=== PATIENT | male | born 1945 | race Caucasian/White ===

== ENCOUNTER 2023-05-22 08:01 | Day surgery (SDC) | payer OTHER ==
[~2023-05-22] VITALS: Ht 172.7 cm; Wt 85.1 kg
[2023-05-22] VITALS (10 sets, daily range): BP systolic 101–154; BP diastolic 54–98
[~2023-05-22 08:01] MED LIST: ASPI81CH PO; B-12500 MC2 PO; ELEMENTAL ZINC30 MG PO; Lisinopril-Hct1 EAC4 PO; OMEP20ER PO; POTCIT10 PO; Vitamin D1000 UNI1 PO
--- NOTE | 2023-05-22 12:19 | NUR ---
DISCHARGE NOTE PT A&OX4, BREATHING RA, CALM, TALKATIVE, NO COMPLAINTS. PT TOLERATING PO FLUIDS AND FOOD. PT DRESSED INDEPENDENTLY C RN AT BEDSIDE. Discharge instructions reviewed with patient. Patient verbalizes understanding. Copy given to patient to take home. Dressing to procedure site clean, dry, intact with no visible drainage, swelling, erythema or bruising noted. Discharged via wheelchair to private car for ride home.
== END 2023-05-22 12:26 | disposition home or self-care (01) ==
LOC: ORSCMMR 08:01 → ORD 09:30 → ORSCMMR 09:30
PROVIDERS: Surgery
PROC: 0YU54JZ Supplement Right Inguinal Region with Synthetic Substitute, Percutaneous Endoscopic Approach (ICD-10-PCS; principal; 2023-05-22 09:30)
PROC: 8E0W4CZ Robotic Assisted Procedure of Trunk Region, Percutaneous Endoscopic Approach (ICD-10-PCS; principal; 2023-05-22 09:30)
DX: K40.90 Unilateral inguinal hernia, without obstruction or gangrene, not specified as recurrent (principal); I10 Essential (primary) hypertension; Z87.891 Personal history of nicotine dependence; K21.9 Gastro-esophageal reflux disease without esophagitis; Z79.899 Other long term (current) drug therapy; Z79.82 Long term (current) use of aspirin
CPT/HCPCS: A9270; C1781; J0690; J1100; J1885; J2250; J2405; J2704; J3010; J7120

== ENCOUNTER 2024-03-17 05:07 | Emergency (ER) | payer OTHER ==
[~2024-03-17] VITALS: Ht 177.8 cm; Wt 73.5 kg
[2024-03-17 05:31] LABS: BASOPHILS ABSOLUTE AUTO 0.06 K/mm3 (0.00-0.23); BASOPHILS PERCENT AUTO 0 % (0-2); EOSINOPHILS ABSOLUTE AUTO 0.19 K/mm3 (0.00-0.68); EOSINOPHILS PERCENT AUTO 1 % (0-6); Hematocrit 41.5 % (37.0-53.0); Hemoglobin 14.2 g/dL (13.5-17.5); IMMATURE GRAN ABSOLUTE AUTO 0.17 K/mm3 (0.00-0.10); IMMATURE GRAN PERCENT AUTO 1 % (0-1); LYMPHOCYTES ABSOLUTE AUTO 1.86 K/mm3 (0.84-5.20); LYMPHOCYTES PERCENT AUTO 10 % (21-46); MONOCYTES ABSOLUTE AUTO 2.05 K/mm3 (0.16-1.47); MONOCYTES PERCENT AUTO 11 % (4-13); Mean Corpuscular HGB 33.4 pg (26.0-34.0); Mean Corpuscular HGB Conc 34.2 g/dL (31.5-36.5); Mean Corpuscular Volume 98 fL (80-100); Mean Platelet Volume 9.7 fL (9.1-12.4); NEUTROPHILS ABSOLUTE AUTO 14.71 K/mm3 (1.96-9.15); NEUTROPHILS PERCENT AUTO 77 % (41-73); Platelet Count 283 K/mm3 (150-400); RDW Coefficient Variation 13.6 % (11.7-14.2); Red Blood Cell Count 4.25 M/mm3 (4.30-5.90); White Blood Cell Count 19.04 K/mm3 (4.00-11.30)
[2024-03-17 05:59] LABS: Albumin/Globulin Ratio 0.8 (0.8-1.8); Bilirubin, Total 5.5 mg/dL (0.1-1.0); Bun/Creatinine Ratio 12.8 (12.0-20.0); Calcium, Blood 8.9 mg/dL (8.5-10.1); Creatinine, Blood 1.17 mg/dL (0.60-1.20); Potassium, Blood 4.2 mmol/L (3.5-5.5)
[2024-03-17] MEDS ORDERED: Piperacillin/Tazobactam Sod 4.5 GM in NS 100 ML IV ONE (07:50)
[2024-03-17] MEDS ORDERED: NS 100 ML IV ONE (08:00)
[2024-03-17] MEDS ORDERED: Piperacillin/Tazobactam Sod 4.5 GM ONE (08:00)
[2024-03-17 10:17] VITALS: BP 145/91
[2024-03-17 10:21] LABS: Source, Urine Clean Catch
[2024-03-17 10:28] LABS: Appearance, Urine Clear (Clear); Blood, Urine Neg (Neg); Color, Urine Yellow (P-Yellow); Glucose Qualitative, Urine Neg (Neg); Ketones, Urine Neg (Neg); Leukocyte Esterase, Urine 1+ (Neg); Nitrite, Urine Neg (Neg); Protein, Urine 1+ (Neg); Urobilinogen, Urine 2+ (Normal)
[2024-03-17 10:36] LABS: Bilirubin, Urine 2+ (Neg)
[2024-03-17 10:37] LABS: Bacteria Rare /hpf; Red Blood Cells, Urine 0-2 /hpf (0-2); Squamous Epithelial Cells Few /hpf (Few)
== END 2024-03-17 10:55 | disposition short-term general hospital (02) ==
LOC: ER 05:07
PROVIDERS: Emergency Medicine
DX: K80.50 Calculus of bile duct without cholangitis or cholecystitis without obstruction (principal); I10 Essential (primary) hypertension; Z87.891 Personal history of nicotine dependence; Z91.030 Bee allergy status; Z79.82 Long term (current) use of aspirin; Z79.899 Other long term (current) drug therapy
CPT/HCPCS: 71046; 74177; 80053; 81001; 83690; 84484; 85025; 87086; 93005; 93010; 96361; 96374-59; 99285-25; J2543; Q9967

== ENCOUNTER 2025-01-24 20:52 | Inpatient (IN) | payer OTHER ==
[~2025-01-24] VITALS: Ht 177.8 cm; Wt 84.0 kg
[~2025-01-24 20:52] MED LIST changes: +EFUDEX40 GM TOP; +SILD50TA PO
[2025-01-24] MEDS ORDERED: Ondansetron HCl 2 MG / ML 2ML Vial IV ONE ×2 (21:10→23:05)
[2025-01-24 21:11] LABS: BASOPHILS ABSOLUTE AUTO 0.04 K/mm3 (0.00-0.23); BASOPHILS PERCENT AUTO 0 % (0-2); EOSINOPHILS ABSOLUTE AUTO 0.08 K/mm3 (0.00-0.68); EOSINOPHILS PERCENT AUTO 0 % (0-6); Hematocrit 39.9 % (37.0-53.0); Hemoglobin 13.7 g/dL (13.5-17.5); IMMATURE GRAN ABSOLUTE AUTO 0.10 K/mm3 (0.00-0.10); IMMATURE GRAN PERCENT AUTO 1 % (0-1); LYMPHOCYTES ABSOLUTE AUTO 2.59 K/mm3 (0.84-5.20); LYMPHOCYTES PERCENT AUTO 13 % (21-46); MONOCYTES ABSOLUTE AUTO 2.42 K/mm3 (0.16-1.47); MONOCYTES PERCENT AUTO 12 % (4-13); Mean Corpuscular HGB Conc 34.3 g/dL (31.5-36.5); Mean Corpuscular Volume 97 fL (80-100); NEUTROPHILS ABSOLUTE AUTO 15.34 K/mm3 (1.96-9.15); NEUTROPHILS PERCENT AUTO 75 % (41-73); NRBC ABSOLUTE 0.00 K/mm3 (0.00-0.02); NRBC Auto 0.0 /100 WBC (0.0-0.2); Platelet Count 235 K/mm3 (150-400); RDW Coefficient Variation 13.2 % (11.7-14.2); RDW Standard Deviation 48.0 fL (35.1-46.3)
[2025-01-24 21:35] LABS: Alanine Aminotransfer (ALT/SGP 122.0 U/L (12-78); Albumin, Blood 3.2 g/dL (3.4-5.0); Albumin/Globulin Ratio 1.0 (0.8-1.8); Anion Gap 9.0 mmol/L (3-11); Aspartate Aminotrans (AST/SGOT 190.0 U/L (12-37); Bilirubin, Total 1.6 mg/dL (0.1-1.0); Blood Urea Nitrogen 22.0 mg/dL (8-24); CO2, Blood 28.0 mmol/L (21-32); Calcium, Blood 8.5 mg/dL (8.5-10.1); Chloride, Blood 105.0 mmol/L (98-108); Creatinine, Blood 1.19 mg/dL (0.60-1.20); Globulin, Blood 3.2 g/dL (2.2-4.0); Glucose, Blood 164.0 mg/dL (70-99); Potassium, Blood 3.6 mmol/L (3.5-5.5); Sodium, Blood 138.0 mmol/L (136-145); Total Protein, Blood 6.4 g/dL (6.4-8.2)
[2025-01-24] MEDS ORDERED: Ketorolac Tromethamine 15mg Vial IV ONE (23:35)
[2025-01-25] VITALS (87 sets, daily range): BP systolic 103–154; BP diastolic 50–111
[2025-01-25] MEDS ORDERED: Morphine Sulfate 4 MG/1 ML Injection IV ONE (00:10)
[2025-01-25 00:37] LABS: Thyroid Stimulating Hormone 2.63 uIU/mL (0.360-4.800)
[2025-01-25] MEDS ORDERED: Morphine Sulfate 4 MG/1 ML Injection IV PRN (01:30)
[2025-01-25] MEDS ORDERED: Prochlorperazine Edisylate 10 mg Vial IV PRN (02:00)
[2025-01-25] MEDS ORDERED: Prochlorperazine Edisylate 10 mg Vial IV ONE (02:00)
--- NOTE | 2025-01-25 02:00 | NUR ---
TRANSFER FROM ER RECEIVED PT VIA BED FROM ER AT 0100, MONITORS PLACED, ORIENTED PT TO SURROUNDINGS. C/O EPIGASTRIC PAIN AND NAUSEA THAT'S CONTINUED FROM ED. DR BAEZ NOTIFIED OF PT STATUS AND CONTINUED C/O PAIN AFTER MORPHINE IN ED. ORDERS RECEIVED FOR COMPAZINE AND MORPHINE WHICH WERE GIVEN WITH A POSITIVE RESULT. PT SLEEPING COMFORTABLY. VSS WITH BRADYCARDIA HIGH 50'S TO LOW 60'S.
[2025-01-25 03:44] LABS: BASOPHILS ABSOLUTE AUTO 0.02 K/mm3 (0.00-0.23); BASOPHILS PERCENT AUTO 0 % (0-2); EOSINOPHILS ABSOLUTE AUTO 0.00 K/mm3 (0.00-0.68); EOSINOPHILS PERCENT AUTO 0 % (0-6); Hematocrit 43.0 % (37.0-53.0); Hemoglobin 14.2 g/dL (13.5-17.5); IMMATURE GRAN ABSOLUTE AUTO 0.10 K/mm3 (0.00-0.10); IMMATURE GRAN PERCENT AUTO 1 % (0-1); LYMPHOCYTES ABSOLUTE AUTO 0.63 K/mm3 (0.84-5.20); LYMPHOCYTES PERCENT AUTO 4 % (21-46); MONOCYTES ABSOLUTE AUTO 1.36 K/mm3 (0.16-1.47); MONOCYTES PERCENT AUTO 8 % (4-13); Mean Corpuscular HGB Conc 33.0 g/dL (31.5-36.5); Mean Corpuscular Volume 98 fL (80-100); NEUTROPHILS ABSOLUTE AUTO 14.34 K/mm3 (1.96-9.15); NEUTROPHILS PERCENT AUTO 87 % (41-73); NRBC ABSOLUTE 0.00 K/mm3 (0.00-0.02); NRBC Auto 0.0 /100 WBC (0.0-0.2); Platelet Count 234 K/mm3 (150-400); RDW Coefficient Variation 13.3 % (11.7-14.2); RDW Standard Deviation 48.3 fL (35.1-46.3)
[2025-01-25 04:10] LABS: Alanine Aminotransfer (ALT/SGP 194.0 U/L (12-78); Albumin, Blood 3.2 g/dL (3.4-5.0); Albumin/Globulin Ratio 0.9 (0.8-1.8); Anion Gap 9.0 mmol/L (3-11); Aspartate Aminotrans (AST/SGOT 171.0 U/L (12-37); Bilirubin, Direct 0.6 mg/dL (0.0-0.3); Bilirubin, Indirect 1.2 mg/dL (0.1-0.7); Bilirubin, Total 1.8 mg/dL (0.1-1.0); Blood Urea Nitrogen 26.0 mg/dL (8-24); CO2, Blood 27.0 mmol/L (21-32); Calcium, Blood 8.5 mg/dL (8.5-10.1); Chloride, Blood 104.0 mmol/L (98-108); Creatinine, Blood 1.19 mg/dL (0.60-1.20); Globulin, Blood 3.7 g/dL (2.2-4.0); Glucose, Blood 186.0 mg/dL (70-99); Magnesium, Blood 2.0 mg/dL (1.6-2.4); Potassium, Blood 4.0 mmol/L (3.5-5.5); Sodium, Blood 136.0 mmol/L (136-145); Total Protein, Blood 6.9 g/dL (6.4-8.2)
--- NOTE | 2025-01-25 05:42 | NUR ---
SHIFT SUMMARY PT SETTLED IN AFTER COMPAZINE AND MORPHINE GIVEN FOR NAUSEA AND EPIGASTRIC PAIN. DENIED DISTRESS AFTER MEDS AND SLEPT REST OF MORNING. DENIES DISCOMFORT AT THIS TIME. CON'T WITH BRADYCARDIA 50'S TO 60'S, ASYMPTOMATIC. O2 SAT 97% ON RA, BP STABLE 118/54. PLAN IS FOR CARDIOLOGY CONSULT AND PERM. PACEMAKER PLACEMENT TODAY. WILL UPDATE DAY RN WITH OUTSTANDING ISSUES AND PROBLEMS TO DATE.
[2025-01-25 07:37] LABS: CHOL/HDL RATIO 2.8; Cholesterol 183 mg/dL (50-200); HDL Cholesterol 66 mg/dL (>39); LDL/HDL RATIO 1.6; Low Density Lipoprotein Chol 106 mg/dL (0-110); Triglycerides 57 mg/dL (30-160); Very Low Density Lipoprot Chol 11 mg/dL (6-32)
[2025-01-25] MEDS ORDERED: NS 250 ML IV PRN (11:00)
[2025-01-25] MEDS ORDERED: Ampicillin Sod/Sulbactam Sod 3 GM in NS 100 ML IV SCH (11:00)
--- NOTE | 2025-01-25 11:00 | NUR ---
AM NOTE: THIS RN ASSUMED CARE OF PT AT APPROX 0700, BEDSIDE REPORT FROM NOC RN. PT A/OX4, ABLE TO COMMUNICATE NEEDS. HR 60'S, SINUS RHYTHM ON MONITOR. SBP 110-130'S, MAP >65. DENIES CHEST PAIN/PRESSURE. SPO2 >90% ON RA, RESPIRATIONS EVEN & UNLABORED. AFEBRILE. C/O SEVERE PAIN TO ABD, MEDICATED PER EMAR. DENIES N/V. DENIES NEED TO VOID. NPO AT THIS TIME. LR INITIATED AT 150 ML/HR PER ORDERS.
[2025-01-25] MEDS ORDERED: HYDROmorphone HCl/Pf 1MG SYR IV ONE (12:00)
[2025-01-25] MEDS ORDERED: HYDROmorphone HCl/Pf 1MG SYR IV PRN (12:25)
[2025-01-25] MEDS ORDERED: Chlorhexidine Mouth Care 15 ML UDC MT ONE (15:00)
--- NOTE | 2025-01-25 15:22 | NUR ---
UPDATE: PT'S NEIGHBOR, JOAQUIN, CALLED FOR AN UPDATE. PER PT, OK TO PROVIDE AN UPDATE. DISCUSSED PT'S CURRENT CONDITION AND PLAN OF CARE. JOAQUIN STATES THE PT IS WELCOME TO CALL HIM ANY TIME; HE CAN BE REACHED AT [phone].
--- NOTE | 2025-01-25 15:44 | NUR ---
Patient is lying in bed and alert. He is slightly confused but was able to say that he was nervous about an upcoming procedure. I offered to pray for him and he said, "Please do." I gladly provided prayer. Meghnan stated that he feels more peace. Spiritual care will remain available.
[2025-01-25] MEDS ORDERED: Insulin Regular 100 UNIT/ML 10ML Vial SC SCH (18:00)
--- NOTE | 2025-01-25 18:25 | NUR ---
END OF SHIFT NOTE: PT REMAINED ALERT FOR MAJORITY OF DAY, LETHARGIC AT TIMES FOLLOWING ADMINISTRATION OF PAIN MEDICATION. ORIENTED X4, ABLE TO MAKE NEEDS KNOWN. HR 70-90'S, SINUS RHYTHM ON MONITOR ASIDE FROM SINGULAR EVENT OF BRADYCARDIA W/ MOBITZ II ON MONITOR THIS AM. BP STABLE, MAP >65. SPO2 >90% ON RA-2L VIA NC. AFEBRILE. C/O SEVERE ABD PAIN, PT MEDICATED W/ DILAUDID PER EMAR W/ SIGNIFICANT RELIEF. PT HAS NOT VOIDED FOR ENTIRE SHIFT; BLADDER SCAN COMPLETED SHOWING 76ML IN BLADDER. NO BM'S. PT HAS REMAINED NPO, LR INFUSING PER AT 200 ML/HR. Q6HR CBG. REPOSITIONS SELF INDEPENDENTLY IN BED. ABD CT COMPLETED, DR. SAMUELS TO BEDSIDE TO RELAY IMAGING RESULTS TO FAMILY THIS EVENING. ZOLL REMAINS AT BEDSIDE. PT RESTING IN BED W/ CALL LIGHT IN REACH.
[2025-01-26] VITALS (34 sets, daily range): BP systolic 114–147; BP diastolic 60–90
[2025-01-26 03:34] LABS: BASOPHILS ABSOLUTE AUTO 0.10 K/mm3 (0.00-0.23); BASOPHILS PERCENT AUTO 0 % (0-2); EOSINOPHILS ABSOLUTE AUTO 0.00 K/mm3 (0.00-0.68); EOSINOPHILS PERCENT AUTO 0 % (0-6); Hematocrit 43.1 % (37.0-53.0); Hemoglobin 14.4 g/dL (13.5-17.5); IMMATURE GRAN ABSOLUTE AUTO 0.16 K/mm3 (0.00-0.10); IMMATURE GRAN PERCENT AUTO 1 % (0-1); LYMPHOCYTES ABSOLUTE AUTO 1.58 K/mm3 (0.84-5.20); LYMPHOCYTES PERCENT AUTO 6 % (21-46); MONOCYTES ABSOLUTE AUTO 1.85 K/mm3 (0.16-1.47); MONOCYTES PERCENT AUTO 8 % (4-13); Mean Corpuscular HGB Conc 33.4 g/dL (31.5-36.5); Mean Corpuscular Volume 97 fL (80-100); NEUTROPHILS ABSOLUTE AUTO 21.11 K/mm3 (1.96-9.15); NEUTROPHILS PERCENT AUTO 85 % (41-73); NRBC ABSOLUTE 0.00 K/mm3 (0.00-0.02); NRBC Auto 0.0 /100 WBC (0.0-0.2); Platelet Count 210 K/mm3 (150-400); RDW Coefficient Variation 13.7 % (11.7-14.2); RDW Standard Deviation 49.9 fL (35.1-46.3)
[2025-01-26 03:56] LABS: Alanine Aminotransfer (ALT/SGP 106.0 U/L (12-78); Albumin, Blood 2.8 g/dL (3.4-5.0); Albumin/Globulin Ratio 0.9 (0.8-1.8); Anion Gap 5.0 mmol/L (3-11); Aspartate Aminotrans (AST/SGOT 53.0 U/L (12-37); Bilirubin, Total 1.7 mg/dL (0.1-1.0); Blood Urea Nitrogen 30.0 mg/dL (8-24); CO2, Blood 31.0 mmol/L (21-32); Calcium, Blood 8.2 mg/dL (8.5-10.1); Chloride, Blood 106.0 mmol/L (98-108); Creatinine, Blood 1.01 mg/dL (0.60-1.20); Globulin, Blood 3.2 g/dL (2.2-4.0); Glucose, Blood 93.0 mg/dL (70-99); Potassium, Blood 4.2 mmol/L (3.5-5.5); Sodium, Blood 138.0 mmol/L (136-145); Total Protein, Blood 6.0 g/dL (6.4-8.2)
--- NOTE | 2025-01-26 06:10 | NUR ---
SHIFT SUMMARY PT HAD FAIRLY UNEVENTFUL NIGHT. VSS, NO BRADYCARDIC EPISODES. MEDICATED FOR PAIN AND NAUSEA PRN WITH GOOD RESULT. SLEPT MAJORITY OF NIGHT. REQUIRED NC 4L OFF AND ON WHILE ASLEEP, NINFA AFTER PAIN MED DOSE. RESTING AT THIS TIME WITH NO COMPLAINTS. WILL UPDATE DAY RN WITH LATEST STATUS.
--- NOTE | 2025-01-26 07:43 | NUR ---
AM NOTE... ASSUMED CARE OF PT AT 0700, PT IS A&Ox4. PT IS IN SR IN THE 60'S-80'S W/OCC PVCs. BP IS STABLE AT 155/88. PT DENIES CHEST PAIN/PRESSURE. NO SWELLING OR EDEMA NOTED ON THIS ASSESSMENT. PT IS ON RA WITH O2 SATS>95% BUT NEEDS 2-4L NC WHILE SLEEPING AFTER PAIN MEDS. L/S CLEAR T/O. BT ARE PRESENT AND HYPOACTIVE, ABD HAS SOME DISTENTION AND IS TENDER TO PALPATION. PT C/O OF 10/10 ABD PAIN, HE WAS MEDICATED WITH 1MG IV DILAUDID PER EMAR.
--- NOTE | 2025-01-26 08:05 | NUR ---
PT UPDATE... DR. CAMACHO AT THE BEDSIDE TO ASSESS THE PT. NO PLANS FOR A PERMANENT PACER AT THIS TIME. PER DR. CAMACHO PT CAN BE PCU STATUS.
[2025-01-26] MEDS ORDERED: HYDROmorphone HCl/Pf 1MG SYR IV PRN (10:20)
--- NOTE | 2025-01-26 11:42 | NUR ---
The patient is lying in bed and alert. He tells me about his conversation with his "girlfriend" that ended poorly and with her leaving abruptly. He explains about the conflict and about why he is so upset. We talk about conflict resolution, self-care and the healing process. Patient responded well and showed signs of reduced stress. Spiritual care will remain available.
--- NOTE | 2025-01-26 12:28 | NUR ---
PT UP TO CHAIR... PT WAS A SBA TO THE RECLINER CHAIR, HE STATED HE FELT "LIGHT HEADED" WHEN HE SAT AT THE SIDE OF THE BED AND ALSO WHEN HE STOOD UP TO TRANSFER. PT WAS STABLE WITH THE TRANSFER. PT'S HR PRIOR TO THE TRANSFER WAS SR 70'S-80'S DURING THE TRANSFER HE CONTINUED TO BE IN SR BUT HIS RATE WENT TO THE 90'S-100'S. ONCE HE WAS IN THE CHAIR HIS HR SETTLED IN THE 80'S. BP DURING THIS TIME WAS 145/79.
--- NOTE | 2025-01-26 14:25 | NUR ---
PT TRANSFER... REPORT GIVEN TO STRAIGHT TOOTH GEAR GENERATOR OPERATOR. ALL PT'S BELONGINGS PACKED AND SENT WITH THE PT.
--- NOTE | 2025-01-26 16:08 | NUR ---
ICU3 TO PCU14 PT BROUGHT OVER TO PCU FROM ICU VIA WC, ABLE TO STAND AND TRANSFER HIMSELF TAKING A FEW STEPS TO GO FROM HIS WC TO HIS NEW BED. 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 A/OX4, EASILY VERBALIZES NEEDS, DISCUSSED PLAN OF CARE AND FLOW HERE IN PCU.
--- NOTE | 2025-01-26 19:15 | NUR ---
SHIFT SUMMARY PT REPORTS CONCERN RELATING TO HIS HOME MEDICATIONS NOT BEING GIVEN TO HIM, HOME MEDS HAVE NOT BEEN ORDERED YET, PT TOLERATED A SMALL AMOUNT OF PO FLUIDS AT DINNER TIME AND HAD AN INCREASE IN PAIN, THIS WAS IMPROVED AFTER TAKING HIS OMEPRAZOLE, HE WOULD LIKE TO GET THE REST OF HIS HOME MEDS TOMORROW WHICH WILL BE DISCUSSED WITH THE MD. NO ACUTE EVENTS SINCE TRANSFERRING TO PCU.
[2025-01-26 21:14] LABS: LYME VLSE1/PEPC10 ABS, ELISA 0.62 IV (<=0.90)
[2025-01-27] VITALS (8 sets, daily range): BP systolic 131–154; BP diastolic 77–90
[2025-01-27 04:14] LABS: Hematocrit 39.6 % (37.0-53.0); Hemoglobin 13.1 g/dL (13.5-17.5); Mean Corpuscular HGB Conc 33.1 g/dL (31.5-36.5); Mean Corpuscular Volume 98 fL (80-100); NRBC ABSOLUTE 0.00 K/mm3 (0.00-0.02); NRBC Auto 0.0 /100 WBC (0.0-0.2); Platelet Count 188 K/mm3 (150-400); RDW Coefficient Variation 13.6 % (11.7-14.2); RDW Standard Deviation 49.7 fL (35.1-46.3)
[2025-01-27 04:23] LABS: BAND PERCENT MAN 4 % (0-8); BASOPHILS ABSOLUTE MAN 0.00 K/mm3 (0.00-0.23); BASOPHILS PERCENT MAN 0 % (0-2); EOSINOPHILS ABSOLUTE MAN 0.00 K/mm3 (0.00-0.68); EOSINOPHILS PERCENT MAN 0 % (0-6); LYMPHOCYTES ABSOLUTE MAN 0.82 K/mm3 (0.84-5.20); LYMPHOCYTES PERCENT MAN 4 % (21-46); MONOCYTES ABSOLUTE MAN 2.06 K/mm3 (0.16-1.47); MONOCYTES PERCENT MAN 10 % (4-13); NEUTROPHILS ABSOLUTE MAN 17.72 K/mm3 (1.96-9.15); SEG NEUTROPHILS PERCENT MAN 82 % (41-73)
[2025-01-27 04:31] LABS: Alanine Aminotransfer (ALT/SGP 59.0 U/L (12-78); Albumin, Blood 2.4 g/dL (3.4-5.0); Albumin/Globulin Ratio 0.8 (0.8-1.8); Anion Gap 6.0 mmol/L (3-11); Aspartate Aminotrans (AST/SGOT 31.0 U/L (12-37); Bilirubin, Total 1.2 mg/dL (0.1-1.0); Blood Urea Nitrogen 29.0 mg/dL (8-24); CO2, Blood 30.0 mmol/L (21-32); Calcium, Blood 8.3 mg/dL (8.5-10.1); Chloride, Blood 104.0 mmol/L (98-108); Creatinine, Blood 0.95 mg/dL (0.60-1.20); Globulin, Blood 3.2 g/dL (2.2-4.0); Glucose, Blood 101.0 mg/dL (70-99); Potassium, Blood 3.8 mmol/L (3.5-5.5); Sodium, Blood 136.0 mmol/L (136-145); Total Protein, Blood 5.6 g/dL (6.4-8.2)
--- NOTE | 2025-01-27 05:48 | NUR ---
SHIFT SUMMARY PT IS A&O X4, ABLE TO MAKE NEEDS KNOWN, MOVING ALL EXTREMITIES WITH PURPOSE, REPOSITIONING SELF IN BED, OBEYS COMMANDS, SBA TO BRP. CONTINUOUS SPO2, SPO2 GREATER 90% ON RA, LUNGS SOUND CLEAR T/O,, NO SIGNS OF RESPIRATORY DISTRESS. CONTINUOUS TELE MONITORING, SINUS RHYTHM 80-90 S, PULSES PRESENT T/O, PT DENEIS CHEST P/P T/O THIS SHIFT, BP STABLE WITH MAP GREATER THAN 65. BOWEL TONES PRESENT IN ALL 4Q, PT DENIES FEELINGS OF NAUSEA, OR CONSTIPATION. USING URINAL IND, URINE MITZY IN COLOR. PT REPORTING STOMACH PAIN THIS SHIFT/ MEDICATED PER ORDERS. PT HAS RIGHT KNEE ABRASION FROM SYNCOPAL EPISODE PRIOR TO ADMISSION BED LOWEST POSITION, CALL LIGHT IN REACH, AWAITING TO GIVE REPORT TO ONCOMING RN.
--- NOTE | 2025-01-27 07:25 | NUR ---
MIKI REPORT GOT BEDSIDE REPORT FROM NOC RN, DISCUSSED LOOKING IN TO HIS HOME MEDICATIONS WHICH HE HAD VOICED A CONCERN ABOUT YESTERDAY, NO NEEDS AT THIS TIME.
[2025-01-27] MEDS ORDERED: Insulin Human Lispro 100 Units/ML 3ML Syringe SC SCH (07:30)
[2025-01-27] MEDS ORDERED: Misc. Tablet PO SCH (09:00)
[2025-01-27] MEDS ORDERED: Cholecalciferol 1000 Unit Tablet (=25MCG) PO SCH (09:00)
[2025-01-27] MEDS ORDERED: OxyCODONE 5 mg/Acetamin 325 mg TABLET PO PRN (11:20)
[2025-01-27] MEDS ORDERED: Enoxaparin 40 MG/0.4 ML SYR SC SCH (13:00)
--- NOTE | 2025-01-27 18:38 | NUR ---
SHIFT SUMMARY PT HAD AN UNEVENTFUL DAY TODAY, MINIMAL PO INTAKE WITH HIM REPORTING INCREASED ABD PAIN. MEDICATED 1X THIS SHIFT WITH PO PAIN MEDS PER EMAR WHICH PROVIDED RELIEF, HOME MEDS RESTARTED THIS AM, HE IS VOIDING WELL AND INDEPENDENTLY, CALLS APPROPRIATELY. VITALS HAVE BEEN STABLE TODAY. CARDIOLOGY WILL SEE HIM AGAIN IN THE MORNING BUT STATED TODAY THAT HE IS CLEAR ON THEIR END. NO ACUTE EVENTS THIS SHIFT, CALL LIGHT IN REACH.
[2025-01-28 03:42] VITALS: BP 145/83
[2025-01-28 05:16] LABS: Hematocrit 36.9 % (37.0-53.0); Hemoglobin 12.7 g/dL (13.5-17.5); Mean Corpuscular HGB Conc 34.4 g/dL (31.5-36.5); Mean Corpuscular Volume 98 fL (80-100); NRBC ABSOLUTE 0.00 K/mm3 (0.00-0.02); NRBC Auto 0.0 /100 WBC (0.0-0.2); Platelet Count 200 K/mm3 (150-400); RDW Coefficient Variation 13.3 % (11.7-14.2); RDW Standard Deviation 47.8 fL (35.1-46.3)
[2025-01-28 05:45] LABS: Anion Gap 5.0 mmol/L (3-11); Blood Urea Nitrogen 29.0 mg/dL (8-24); CO2, Blood 32.0 mmol/L (21-32); Calcium, Blood 8.2 mg/dL (8.5-10.1); Chloride, Blood 105.0 mmol/L (98-108); Creatinine, Blood 0.81 mg/dL (0.60-1.20); Glucose, Blood 92.0 mg/dL (70-99); Potassium, Blood 3.5 mmol/L (3.5-5.5); Sodium, Blood 138.0 mmol/L (136-145)
[2025-01-28 05:47] LABS: BAND PERCENT MAN 2 % (0-8); BASOPHILS ABSOLUTE MAN 0.00 K/mm3 (0.00-0.23); BASOPHILS PERCENT MAN 0 % (0-2); EOSINOPHILS ABSOLUTE MAN 0.18 K/mm3 (0.00-0.68); EOSINOPHILS PERCENT MAN 1 % (0-6); LYMPHOCYTES ABSOLUTE MAN 1.51 K/mm3 (0.84-5.20); LYMPHOCYTES PERCENT MAN 8 % (21-46); MONOCYTES ABSOLUTE MAN 0.56 K/mm3 (0.16-1.47); MONOCYTES PERCENT MAN 3 % (4-13); NEUTROPHILS ABSOLUTE MAN 16.61 K/mm3 (1.96-9.15); SEG NEUTROPHILS PERCENT MAN 86 % (41-73)
[2025-01-28 12:18] VITALS: BP 163/92
--- NOTE | 2025-01-28 14:22 | NUR ---
TRANSFERED CARE TO RN CHARLY REPORT WAS GIVEN. PALLIATIVE CARE NURSE UPDATED US ON CHANGES TO PT CARE DURING REPORT. PT HAS BEEN AOX0 TODAY. PT WAS TREATED FOR HIGH BP PER EMAR WELL. PT WILL NOW BE TRANSITIONED TO COMFORT CARE PER WIFES WISHES.
--- NOTE | 2025-01-28 15:01 | NUR ---
ASSUMED CARE FROM NURSE. PT IS A/O LAYING QUIETLY IN BED, CURRENTLY HAS NO COMPLAINTS, NO PAIN NO DISTRESS. CALL LIGHT WITHIN REACH.
[2025-01-28 20:41] VITALS: BP 150/97
[2025-01-29 00:27] VITALS: BP 130/78
[2025-01-29 03:35] VITALS: BP 129/77
--- NOTE | 2025-01-29 04:56 | NUR ---
PT A&O X4, VS WNL, USES CALL SYSTEM APPROPRIATELY. INDEPENDENT WITH MOBILITY. PAIN REMAINS HIGH IN 7-8 RANGE BEFORE MEDS AND WILL DISSIPATE WITHIN 30MIN OF MEDICATION. TAKING DILAUDID AND PERCOCET. PO INTAKE STILL ON CLEAR LIQUIDS. NO NAUSEA THIS SHIFT. TELE NSR IN 60'S. CBG LOW 90'S. PLAN IS TO DECIDE IF PT NEEDS PACEMAKER. WILL THEN D/C TO HOME.
[2025-01-29 05:46] LABS: BASOPHILS ABSOLUTE AUTO 0.09 K/mm3 (0.00-0.23); BASOPHILS PERCENT AUTO 0 % (0-2); EOSINOPHILS ABSOLUTE AUTO 0.36 K/mm3 (0.00-0.68); EOSINOPHILS PERCENT AUTO 2 % (0-6); Hematocrit 36.6 % (37.0-53.0); Hemoglobin 12.4 g/dL (13.5-17.5); IMMATURE GRAN ABSOLUTE AUTO 0.18 K/mm3 (0.00-0.10); IMMATURE GRAN PERCENT AUTO 1 % (0-1); LYMPHOCYTES ABSOLUTE AUTO 1.80 K/mm3 (0.84-5.20); LYMPHOCYTES PERCENT AUTO 9 % (21-46); MONOCYTES ABSOLUTE AUTO 2.50 K/mm3 (0.16-1.47); MONOCYTES PERCENT AUTO 12 % (4-13); Mean Corpuscular HGB Conc 33.9 g/dL (31.5-36.5); Mean Corpuscular Volume 97 fL (80-100); NEUTROPHILS ABSOLUTE AUTO 15.75 K/mm3 (1.96-9.15); NEUTROPHILS PERCENT AUTO 76 % (41-73); NRBC ABSOLUTE 0.00 K/mm3 (0.00-0.02); NRBC Auto 0.0 /100 WBC (0.0-0.2); Platelet Count 240 K/mm3 (150-400); RDW Coefficient Variation 13.2 % (11.7-14.2); RDW Standard Deviation 47.2 fL (35.1-46.3)
[2025-01-29 06:12] LABS: Anion Gap 7.0 mmol/L (3-11); Blood Urea Nitrogen 25.0 mg/dL (8-24); CO2, Blood 29.0 mmol/L (21-32); Calcium, Blood 8.0 mg/dL (8.5-10.1); Chloride, Blood 104.0 mmol/L (98-108); Creatinine, Blood 0.86 mg/dL (0.60-1.20); Glucose, Blood 91.0 mg/dL (70-99); Potassium, Blood 3.2 mmol/L (3.5-5.5); Sodium, Blood 137.0 mmol/L (136-145)
[2025-01-29 07:42] VITALS: BP 140/89
[2025-01-29 11:51] VITALS: BP 170/94
[2025-01-29] MEDS ORDERED: Lisinopril10 MG PO (13:13)
[2025-01-29] MEDS ORDERED: Percocet 5-3251 EACH PO (13:14)
[2025-01-29] MEDS ORDERED: PROC5 PO (13:15)
--- NOTE | 2025-01-29 15:17 | NUR ---
PT DISCHARGED AT 1350 WITH FRIEND TO TRANSPORT HOME. PT HAD ZIO PATCH PLACED PRIOR TO DISCHARGE.PT HAD ALL MEDICATION REVIEWED AND EDUCATIONAL MATERIAL SENT WITH PT. PT TREATED FOR PAIN PER EMAR. COOPERATIVE OF ALL CARE AND INDEPENDENT IN ROOM. PT ESCORTED OUT VIA WHEEL CHAIR. NO DISTRESS NOTED.
== END 2025-01-29 13:56 | disposition home or self-care (01) | DRG 308 ==
LOC: ER 20:52 → ICUE 23:51 → PCU 01-26 15:30 → MEDS 01-28 17:10
PROVIDERS: Student in an Organized Health Care Education/Training Program; ADMIT Student in an Organized Health Care Education/Training Program
DX: I44.1 Atrioventricular block, second degree (principal); K85.90 Acute pancreatitis without necrosis or infection, unspecified; R73.9 Hyperglycemia, unspecified; K04.7 Periapical abscess without sinus; I10 Essential (primary) hypertension; K21.9 Gastro-esophageal reflux disease without esophagitis; Z90.49 Acquired absence of other specified parts of digestive tract; Z79.82 Long term (current) use of aspirin
CPT/HCPCS: 36415; 74160; 76705; 80048; 80053; 80061; 82247; 82248; 82947; 83036; 83690; 83735; 84443; 84484; 85025; 86618; 93005; 93010; 93246; 93306; 94762; 96374; 96375; 99285-25; A9270; J0295; J0780; J1171; J1650; J1885; J2270; J2405; J7050; J7120; Q9967

== ENCOUNTER 2025-02-05 17:21 | Inpatient (IN) | payer OTHER ==
[~2025-02-05] VITALS: Ht 170.2 cm; Wt 84.0 kg
[~2025-02-05 17:21] MED LIST changes: +Lisinopril10 MG PO; +PROC5 PO; +Percocet 5-3251 EACH PO
[2025-02-05 18:10] LABS: Hematocrit 38.0 % (37.0-53.0); Hemoglobin 13.0 g/dL (13.5-17.5); Mean Corpuscular HGB Conc 34.2 g/dL (31.5-36.5); Mean Corpuscular Volume 97 fL (80-100); NRBC ABSOLUTE 0.00 K/mm3 (0.00-0.02); NRBC Auto 0.0 /100 WBC (0.0-0.2); Platelet Count 408 K/mm3 (150-400); RDW Coefficient Variation 13.6 % (11.7-14.2); RDW Standard Deviation 48.5 fL (35.1-46.3)
[2025-02-05] MEDS ORDERED: NS 1,000 ML IV SCH (18:20)
[2025-02-05] MEDS ORDERED: Morphine Sulfate 4 MG/1 ML Injection IV ONE (18:20)
[2025-02-05] MEDS ORDERED: Ondansetron HCl 2 MG / ML 2ML Vial IV ONE (18:20)
[2025-02-05 18:39] LABS: BASOPHILS ABSOLUTE MAN 0.00 K/mm3 (0.00-0.23); BASOPHILS PERCENT MAN 0 % (0-2); EOSINOPHILS ABSOLUTE MAN 0.00 K/mm3 (0.00-0.68); EOSINOPHILS PERCENT MAN 0 % (0-6); LYMPHOCYTES ABSOLUTE MAN 1.68 K/mm3 (0.84-5.20); LYMPHOCYTES PERCENT MAN 3 % (21-46); MONOCYTES ABSOLUTE MAN 1.12 K/mm3 (0.16-1.47); MONOCYTES PERCENT MAN 2 % (4-13); NEUTROPHILS ABSOLUTE MAN 53.20 K/mm3 (1.96-9.15); SEG NEUTROPHILS PERCENT MAN 95 % (41-73)
[2025-02-05 18:50] LABS: Alanine Aminotransfer (ALT/SGP 28.0 U/L (12-78); Albumin, Blood 2.2 g/dL (3.4-5.0); Albumin/Globulin Ratio 0.5 (0.8-1.8); Anion Gap 7.0 mmol/L (3-11); Aspartate Aminotrans (AST/SGOT 18.0 U/L (12-37); Bilirubin, Total 1.5 mg/dL (0.1-1.0); Blood Urea Nitrogen 20.0 mg/dL (8-24); CO2, Blood 27.0 mmol/L (21-32); Calcium, Blood 9.0 mg/dL (8.5-10.1); Chloride, Blood 99.0 mmol/L (98-108); Creatinine, Blood 1.69 mg/dL (0.60-1.20); Globulin, Blood 4.1 g/dL (2.2-4.0); Glucose, Blood 131.0 mg/dL (70-99); Potassium, Blood 4.1 mmol/L (3.5-5.5); Sodium, Blood 129.0 mmol/L (136-145); Total Protein, Blood 6.3 g/dL (6.4-8.2)
[2025-02-05] MEDS ORDERED: Prochlorperazine Edisylate 10 mg Vial IV PRN (20:00)
[2025-02-05] MEDS ORDERED: HYDROmorphone HCl/Pf 1MG SYR IV PRN (20:05)
[2025-02-05] MEDS ORDERED: Mag Hydrox/Al Hydrox/Simeth 18 ML,Lidocaine 2% Viscous Soln 9 ML,Atropine/Scopalam/Hyos... PO ONE (20:10)
--- NOTE | 2025-02-05 20:50 | NUR ---
NEW ADMIT. PATIENT ADMITTED TO [facility] FROM THE ER FOR PANCREATITIS. PATIENT ARRIVED TO ROOM IN [facility] VIA GURNEY AND 1P TRANSPORT. PATIENT ABLE TO STAND AND TRANSFER FROM [facility] TO HOSPITAL BED WITH SBA. PATIENT ORIENTED TO ROOM, THIS RN AND FUEL MANAGERJessi GUTIERREZ INTRODUCED SELVES TO PATIENT AND NOTIFIED PATIENT WE WOULD BE TAKING CARE OF PATIENT TONIGHT. THIS RN ASSUMED PATIENT CARE.
[2025-02-05] MEDS ORDERED: Pantoprazole Sodium 40 MG Injection IV SCH (21:00)
[2025-02-05 21:02] VITALS: BP 107/59
[2025-02-05 21:18] LABS: Anti-Xa UFH, PHA Monitoring <0.10 IU/mL; Prothrombin Time Results 13.6 Sec (9.7-11.5)
[2025-02-05] MEDS ORDERED: Heparin Sodium,Porcine/0.5 NS 500 ML IV SCH (21:30)
[2025-02-05 23:34] VITALS: BP 109/59
[2025-02-06 04:06] LABS: BASOPHILS ABSOLUTE AUTO 0.12 K/mm3 (0.00-0.23); BASOPHILS PERCENT AUTO 0 % (0-2); EOSINOPHILS ABSOLUTE AUTO 0.02 K/mm3 (0.00-0.68); EOSINOPHILS PERCENT AUTO 0 % (0-6); Hematocrit 30.8 % (37.0-53.0); Hemoglobin 10.4 g/dL (13.5-17.5); IMMATURE GRAN ABSOLUTE AUTO 0.59 K/mm3 (0.00-0.10); IMMATURE GRAN PERCENT AUTO 2 % (0-1); LYMPHOCYTES ABSOLUTE AUTO 2.27 K/mm3 (0.84-5.20); LYMPHOCYTES PERCENT AUTO 6 % (21-46); MONOCYTES ABSOLUTE AUTO 3.00 K/mm3 (0.16-1.47); MONOCYTES PERCENT AUTO 8 % (4-13); Mean Corpuscular HGB Conc 33.8 g/dL (31.5-36.5); Mean Corpuscular Volume 97 fL (80-100); NEUTROPHILS ABSOLUTE AUTO 33.19 K/mm3 (1.96-9.15); NEUTROPHILS PERCENT AUTO 85 % (41-73); NRBC ABSOLUTE 0.00 K/mm3 (0.00-0.02); NRBC Auto 0.0 /100 WBC (0.0-0.2); Platelet Count 282 K/mm3 (150-400); RDW Coefficient Variation 13.6 % (11.7-14.2); RDW Standard Deviation 48.7 fL (35.1-46.3)
[2025-02-06 04:19] VITALS: BP 103/62
[2025-02-06 04:21] LABS: Anti-Xa UFH, PHA Monitoring 0.24 IU/mL; Prothrombin Time Results 13.7 Sec (9.7-11.5)
[2025-02-06 04:41] LABS: Alanine Aminotransfer (ALT/SGP 21.0 U/L (12-78); Albumin, Blood 1.7 g/dL (3.4-5.0); Albumin/Globulin Ratio 0.5 (0.8-1.8); Anion Gap 8.0 mmol/L (3-11); Aspartate Aminotrans (AST/SGOT 14.0 U/L (12-37); Bilirubin, Total 1.0 mg/dL (0.1-1.0); Blood Urea Nitrogen 24.0 mg/dL (8-24); CO2, Blood 29.0 mmol/L (21-32); Calcium, Blood 8.1 mg/dL (8.5-10.1); Chloride, Blood 102.0 mmol/L (98-108); Creatinine, Blood 1.39 mg/dL (0.60-1.20); Globulin, Blood 3.4 g/dL (2.2-4.0); Glucose, Blood 95.0 mg/dL (70-99); Potassium, Blood 4.6 mmol/L (3.5-5.5); Sodium, Blood 134.0 mmol/L (136-145); Total Protein, Blood 5.1 g/dL (6.4-8.2)
[2025-02-06] MEDS ORDERED: Dose Adjust by Pharmacy XX STA ×3 (05:56→21:32)
[2025-02-06] MEDS ORDERED: Heparin Sodium 5000 Units/ML 1ML MDV IV ONE ×3 (06:00→21:35)
--- NOTE | 2025-02-06 06:54 | NUR ---
SHIFT SUMMARY. PATIENT IS ALERT AND ORIENTED X4, CALLS APPRORPATELY AND IS ABLE TO MAKE HIS NEEDS KNOWN. PATIENT STARTED ON A HEPARIN GTT THIS SHIFT WITH AND INCREASE IN DOSE AND BOLUS GIVEN THIS AM-SEE EMAR/ORDERS. PATIENT USING URINAL AT BEDSIDE-URINE IS DARK YELLOW-PATIENT DENIES PAIN OR DISCOMFORT WITH URINATION. PATIENT HAVING ABDOMINAL PAIN THAT RADIATES FROM MID ABDOMIN TO LOWER ABDOMIN-DILAUDID GIVEN PRN FOR PAIN PER ORDER WITH REPORTED IMPROVEMENT TO PAIN. PATIENT IS NPO AT THIS TIME. PATIENTS MEDICATION REC COMPLETED. PATIENT REPORTS HE HAS DIFFICULTY SWALLOWING-HE EATS SOFT FOODS SUCH CHICKEN NOODLE SOUP BUT IS ONLY ABLE TO EAT THE NOODLES THE CHICKEN CHUNKS ARE TOO HARD TO SWALLOW-PATIENT WOULD BENEFIT FROM A SPEECH EVAL. PATIENT IS ON 1LPM VIA NASAL CANNULA R/T DESATTING WHEN SLEEPING. BED IS LOCKED IN THE LOWEST POSITION WITH CALL LIGHT IN REACH. REPORT GIVEN TO [place].
[2025-02-06 08:00] VITALS: BP 116/66
[2025-02-06] MEDS ORDERED: Enoxaparin 40 MG/0.4 ML SYR SC SCH ×2 (09:00)
[2025-02-06 10:49] LABS: pH Blood Venous 7.34 (7.34-7.37)
[2025-02-06 12:15] VITALS: BP 130/63
[2025-02-06 12:38] LABS: Hematocrit 31.4 % (37.0-53.0); Hemoglobin 10.8 g/dL (13.5-17.5)
[2025-02-06 13:26] LABS: Magnesium, Blood 1.7 mg/dL (1.6-2.4)
[2025-02-06 13:27] LABS: Albumin, Blood 1.7 g/dL (3.4-5.0); Anion Gap 6 mmol/L (3-11); Blood Urea Nitrogen 22 mg/dL (8-24); CO2, Blood 27 mmol/L (21-32); Calcium, Blood 8.3 mg/dL (8.5-10.1); Chloride, Blood 101 mmol/L (98-108); Creatinine, Blood 1.12 mg/dL (0.60-1.20); Glucose, Blood 101 mg/dL (70-99); Phosphorus, Blood 2.9 mg/dL (2.5-4.9); Potassium, Blood 4.3 mmol/L (3.5-5.5); Sodium, Blood 130 mmol/L (136-145)
--- NOTE | 2025-02-06 13:45 | NUR ---
SHIFT NOTE: PATIENT IS ALERT AND ORIENTED X 4 ABLE TO MAKE NEEDS KNOWN, COOPERATIVE PLEASANT, ABLE TO MAKE NEEDS KNOWN. RECEPTIVE TO EDUCATIONS, INFUSING HEPARIN Gtt, NEEDED AN INCREASE FROM 20 TO 22 AND 2000 UNIT BOLUS. PATIENT DENIES CHEST PAIN PRESSURE OR SOB. VSS. WAS SLIGHTLY TEMP ELEVATED AT 99.1 ON AM DECREASED TO 98.4, PATIETN STILL HAVING ABD PAIN, TOLERATING THE 1 MG DILAUDED Q 4-5 HOUR. FOR PAIN MANAGEMENT 2V CHEST XR, REQUIRING 1L FOR SPO2 >92%. DOES DESATURATE WITH SLEEP. INFUSING LR AT 200. PATIENT WITH MULTIPLE LAB DRAWS WITH MILD IMPROVEMENTS. PLAN OF CARE COTINUES.
[2025-02-06 16:25] VITALS: BP 119/54
[2025-02-06] MEDS ORDERED: Ondansetron HCl 2 MG / ML 2ML Vial IV PRN (16:40)
[2025-02-06] MEDS ORDERED: Vancomycin (Pharmacy Consult) IV SCH (17:15)
[2025-02-06] MEDS ORDERED: CefTRIAXone Sodium 1,000 MG in NS 100 ML IV SCH (18:00)
--- NOTE | 2025-02-06 18:28 | NUR ---
EOS: CHANGE FROM SHIFT NOTE IS PATIENT HAS SOME INCREASED PAIN AFTER EATING LUNCH REQUIRED 2 MG OF DILAUDED FOR PAIN CONTROL, WHICH ALSO HELPED HIS NAUSEA. OBTAINED AN ORDER FOR IV ZOFRAN AND TYLENOL. DR. WAN ORDRED MORE LABS AND ABX TOWARDS THE END OF THE SHIFT. PLEASE SEE RESULTS. DENIES CHEST PAIN PRESSURE OR SOB. STILL ON 1L FOR SPO2 >92%. HIGHEST TEMP 99.1 NOW ON TYLENOL FOR PAIN. NO OTHER ACUTE CONCERNS AT TIME OF NOTE.
[2025-02-06 18:51] LABS: Influenza A/2009-H1 Not Detected (NOT DETECT); SARS-Cov-2 (COVID-19), BioFire Not Detected (NOT DETECT)
--- NOTE | 2025-02-06 19:10 | NUR ---
ASSUMPTION NOTE: THIS RN TO ASSUME CARE OF PT. PATIENT IS SLEEPING IN BED,EASILY AROUSABLE TO VERBAL STIMULI. VITAL SIGNS TAKEN & PATIENT STABLE. PATIENT DOING A SALT RINSE AND SITTING AT THE EDGE OF BED. PATIENT HAS CALL LIGHT WITHIN REACH, BED IN LOWEST POSITION & STATING NOTHING ELSE IS NEEDED AT THIS TIME.
[2025-02-06 19:15] VITALS: BP 112/59
[2025-02-06] MEDS ORDERED: Lactobacil 2-S.Thermo-Bifido 1 1 Cap PO SCH (21:00)
[2025-02-06] MEDS ORDERED: Cefepime HCl 2,000 MG in NS 100 ML IV SCH (22:00)
[2025-02-06 23:34] VITALS: BP 131/61
[2025-02-07 04:09] LABS: BASOPHILS ABSOLUTE AUTO 0.10 K/mm3 (0.00-0.23); BASOPHILS PERCENT AUTO 0 % (0-2); EOSINOPHILS ABSOLUTE AUTO 0.03 K/mm3 (0.00-0.68); EOSINOPHILS PERCENT AUTO 0 % (0-6); Hematocrit 29.1 % (37.0-53.0); Hemoglobin 9.8 g/dL (13.5-17.5); IMMATURE GRAN ABSOLUTE AUTO 0.42 K/mm3 (0.00-0.10); IMMATURE GRAN PERCENT AUTO 1 % (0-1); LYMPHOCYTES ABSOLUTE AUTO 1.35 K/mm3 (0.84-5.20); LYMPHOCYTES PERCENT AUTO 4 % (21-46); MONOCYTES ABSOLUTE AUTO 2.84 K/mm3 (0.16-1.47); MONOCYTES PERCENT AUTO 9 % (4-13); Mean Corpuscular HGB Conc 33.7 g/dL (31.5-36.5); Mean Corpuscular Volume 97 fL (80-100); NEUTROPHILS ABSOLUTE AUTO 28.13 K/mm3 (1.96-9.15); NEUTROPHILS PERCENT AUTO 86 % (41-73); NRBC ABSOLUTE 0.00 K/mm3 (0.00-0.02); NRBC Auto 0.0 /100 WBC (0.0-0.2); Platelet Count 315 K/mm3 (150-400); RDW Coefficient Variation 13.7 % (11.7-14.2); RDW Standard Deviation 49.3 fL (35.1-46.3)
[2025-02-07 04:16] VITALS: BP 100/62
--- NOTE | 2025-02-07 04:22 | NUR ---
SHIFT SUMMARY: PATIENT IS ALERT AND ORIENTED X4 & COOPERATIVE WITH HIS CARE, IS ABLE TO MAKE NEEDS KNWON & USES CALL LIGHT APPROPRIATELY. PATIENT IS ON TELE SHOWING SINUS RYTHM WITH RATE IN 80'S. STTING >92% ON ROOM AIR, IS ON 1 LITER VIA NASAL CANNULA WHEN GIVEN PAIN MEDICATION AND RESTING HE DESAT'S INTO THE 80'S. PT WAS MEDICATED PER EMAR FOR PAIN MANAGEMENT DUE TO HIS PANREATITIS. PATIENT WAS ABLE TO GET REST THROUGHOUT THE SHIFT ONCE WE STAYED ON TOP OF HIS PAIN. HEPARIN DRIP WAS INCREASED TO 24KG/ML & WAS GIVEN A 2500 BOLUS. PATIENT CONTINUES TO GET FLUIDS AT 125ML/HR. PATIENT HAS CALL LIGHT WITHIN REACH, BED IN LOWEST POSITION AND STATING NOTHING ELSE IS NEEDED AT THIS TIME.
[2025-02-07] MEDS ORDERED: Clarify Drug Order XX ONE (05:30)
[2025-02-07] MEDS ORDERED: Dose Adjust by Pharmacy XX STA (11:15)
[2025-02-07] MEDS ORDERED: Heparin Sodium 5000 Units/ML 1ML MDV IV ONE (11:20)
[2025-02-07 11:28] LABS: Alanine Aminotransfer (ALT/SGP 25.0 U/L (12-78); Albumin, Blood 1.7 g/dL (3.4-5.0); Albumin/Globulin Ratio 0.5 (0.8-1.8); Anion Gap 11.0 mmol/L (3-11); Aspartate Aminotrans (AST/SGOT 29.0 U/L (12-37); Bilirubin, Total 0.7 mg/dL (0.1-1.0); Blood Urea Nitrogen 26.0 mg/dL (8-24); CO2, Blood 26.0 mmol/L (21-32); Calcium, Blood 8.0 mg/dL (8.5-10.1); Chloride, Blood 100.0 mmol/L (98-108); Creatinine, Blood 1.14 mg/dL (0.60-1.20); Globulin, Blood 3.3 g/dL (2.2-4.0); Glucose, Blood 87.0 mg/dL (70-99); Potassium, Blood 4.4 mmol/L (3.5-5.5); Sodium, Blood 133.0 mmol/L (136-145); Total Protein, Blood 5.0 g/dL (6.4-8.2)
[2025-02-07 11:42] VITALS: BP 102/55
--- NOTE | 2025-02-07 11:49 | NUR ---
ASSUMPTION OF CARE: PATIENT IS NOW MED NO TELE, DENIES CHEST PAIN PRESSURE OR SOB AT REST. IS STILL REUIRING 1-2L OF O2 PAIN HAS BEEN BETTER TODAY THAN PREVIOUS SHIFT WITH PATIENT. HOWEVER, STILL HAD SOME PAIN AFTER EATING, PROVIDER AWARE. MEDICATED PER MAR. DENIES FREQUENCY FOR THIS RN. IMPROVED MOOD AND ABILITY TO AMBULATE. NO ACUTE CONCERNS AT THIS TIME. LUNGS CLEAR TO COARSE AND DIM, BUT NO CRACKLES LIKE PREVIOUS SHIFT.
[2025-02-07] MEDS ORDERED: Mag Hydrox/Al Hydrox/Simeth 18 ML,Lidocaine 2% Viscous Soln 9 ML,Atropine/Scopalam/Hyos... PO ONE (14:55)
[2025-02-07 15:17] VITALS: BP 128/63
--- NOTE | 2025-02-07 15:53 | NUR ---
EOS: PATIENT NOW HAS AN ORDER FOR ORAL PAIN MEDICATION, WHICH HAS IMPROVED PAIN, ADDITIONALLY HAS BEEN ON RA WITHOUT NEED FOR 1-2L WHILE AT REST. ENDORSES HICCUPS AND ACID REFLUX, X 1 ORDER FOR GI COCKTAIL, WITH MUCH IMPROVEMENT, DID ATTEMPT TUMS FIRST WITH NO RELIEF. DENIES CHEST PAIN PRESSURE OR SOB AT REST. MADE MED TELE, NO ACUTE CONCERNS FROM THIS RN
[2025-02-07 18:50] LABS: BASOPHILS ABSOLUTE AUTO 0.11 K/mm3 (0.00-0.23); BASOPHILS PERCENT AUTO 0 % (0-2); EOSINOPHILS ABSOLUTE AUTO 0.04 K/mm3 (0.00-0.68); EOSINOPHILS PERCENT AUTO 0 % (0-6); Hematocrit 30.6 % (37.0-53.0); Hemoglobin 10.1 g/dL (13.5-17.5); IMMATURE GRAN ABSOLUTE AUTO 0.40 K/mm3 (0.00-0.10); IMMATURE GRAN PERCENT AUTO 2 % (0-1); LYMPHOCYTES ABSOLUTE AUTO 1.04 K/mm3 (0.84-5.20); LYMPHOCYTES PERCENT AUTO 4 % (21-46); MONOCYTES ABSOLUTE AUTO 2.55 K/mm3 (0.16-1.47); MONOCYTES PERCENT AUTO 9 % (4-13); Mean Corpuscular HGB Conc 33.0 g/dL (31.5-36.5); Mean Corpuscular Volume 99 fL (80-100); NEUTROPHILS ABSOLUTE AUTO 23.25 K/mm3 (1.96-9.15); NEUTROPHILS PERCENT AUTO 85 % (41-73); NRBC ABSOLUTE 0.00 K/mm3 (0.00-0.02); NRBC Auto 0.0 /100 WBC (0.0-0.2); Platelet Count 318 K/mm3 (150-400); RDW Coefficient Variation 13.8 % (11.7-14.2); RDW Standard Deviation 49.9 fL (35.1-46.3)
[2025-02-07 19:17] LABS: Alanine Aminotransfer (ALT/SGP 24.0 U/L (12-78); Albumin, Blood 1.7 g/dL (3.4-5.0); Albumin/Globulin Ratio 0.5 (0.8-1.8); Anion Gap 7.0 mmol/L (3-11); Aspartate Aminotrans (AST/SGOT 25.0 U/L (12-37); Bilirubin, Total 0.5 mg/dL (0.1-1.0); Blood Urea Nitrogen 26.0 mg/dL (8-24); CO2, Blood 28.0 mmol/L (21-32); Calcium, Blood 8.1 mg/dL (8.5-10.1); Chloride, Blood 102.0 mmol/L (98-108); Creatinine, Blood 1.05 mg/dL (0.60-1.20); Globulin, Blood 3.6 g/dL (2.2-4.0); Glucose, Blood 111.0 mg/dL (70-99); Potassium, Blood 4.0 mmol/L (3.5-5.5); Sodium, Blood 133.0 mmol/L (136-145); Total Protein, Blood 5.3 g/dL (6.4-8.2)
[2025-02-07 19:47] VITALS: BP 111/70
[2025-02-07 23:45] VITALS: BP 115/65
[2025-02-08 01:31] LABS: BASOPHILS ABSOLUTE AUTO 0.06 K/mm3 (0.00-0.23); BASOPHILS PERCENT AUTO 0 % (0-2); EOSINOPHILS ABSOLUTE AUTO 0.06 K/mm3 (0.00-0.68); EOSINOPHILS PERCENT AUTO 0 % (0-6); Hematocrit 29.5 % (37.0-53.0); Hemoglobin 9.7 g/dL (13.5-17.5); IMMATURE GRAN ABSOLUTE AUTO 0.41 K/mm3 (0.00-0.10); IMMATURE GRAN PERCENT AUTO 1 % (0-1); LYMPHOCYTES ABSOLUTE AUTO 1.22 K/mm3 (0.84-5.20); LYMPHOCYTES PERCENT AUTO 4 % (21-46); MONOCYTES ABSOLUTE AUTO 3.06 K/mm3 (0.16-1.47); MONOCYTES PERCENT AUTO 11 % (4-13); Mean Corpuscular HGB Conc 32.9 g/dL (31.5-36.5); Mean Corpuscular Volume 98 fL (80-100); NEUTROPHILS ABSOLUTE AUTO 24.21 K/mm3 (1.96-9.15); NEUTROPHILS PERCENT AUTO 84 % (41-73); NRBC ABSOLUTE 0.00 K/mm3 (0.00-0.02); NRBC Auto 0.0 /100 WBC (0.0-0.2); Platelet Count 345 K/mm3 (150-400); RDW Coefficient Variation 13.7 % (11.7-14.2); RDW Standard Deviation 49.1 fL (35.1-46.3)
[2025-02-08 01:49] LABS: Alanine Aminotransfer (ALT/SGP 24.0 U/L (12-78); Albumin, Blood 1.6 g/dL (3.4-5.0); Albumin/Globulin Ratio 0.4 (0.8-1.8); Anion Gap 7.0 mmol/L (3-11); Aspartate Aminotrans (AST/SGOT 23.0 U/L (12-37); Bilirubin, Total 0.5 mg/dL (0.1-1.0); Blood Urea Nitrogen 25.0 mg/dL (8-24); CO2, Blood 27.0 mmol/L (21-32); Calcium, Blood 7.9 mg/dL (8.5-10.1); Chloride, Blood 102.0 mmol/L (98-108); Creatinine, Blood 1.18 mg/dL (0.60-1.20); Globulin, Blood 3.6 g/dL (2.2-4.0); Glucose, Blood 109.0 mg/dL (70-99); Potassium, Blood 4.2 mmol/L (3.5-5.5); Sodium, Blood 132.0 mmol/L (136-145); Total Protein, Blood 5.2 g/dL (6.4-8.2)
[2025-02-08] MEDS ORDERED: Dose Adjust by Pharmacy XX STA ×3 (02:08→21:38)
[2025-02-08] MEDS ORDERED: Heparin Sodium 5000 Units/ML 1ML MDV IV ONE ×2 (02:10→14:35)
[2025-02-08 04:13] VITALS: BP 130/64
--- NOTE | 2025-02-08 05:34 | NUR ---
SHIFT SUMMARY PT IS A&O X4, ABLE TO MAKE NEEDS KNOWN, MOVING EXTREMITIES WITH PURPOSE, REPOSITIONING SELF IN BED, ABLE TO AMBULATED TO BRP SBA FOR CORD MANAGEMENT, OBEYS COMMANDS. CONTINUOUS SPO2 GREATER THAN 90% RA, LUNGS SOUND CLEAR UPPERS WITH DIMINISHED BASES AND CRACKLES IN RLL, NO SIGNS OF RESPIRATORY DISTRESS NOTED, PT REPORTING INTERMITTENT HICUPS THAT MAKE HIM SHORT OF BREATH AND FEELS LIKE THEY GET STUCK IN HIS THROAT/ SPO2 MAINTAINED GREATER THAN 90%/ MD NOTIFIED. CONTINUOUS TELE MONITORING, SINUS 80 S, PT DENIES CHEST P/P T/O THIS SHIFT, BP STABLE WITH MAP GREATER THAN 65, PULSES PRESENT T/O. BOWEL TONES PRESENT IN ALL 4Q, PT DENIES FEELINGS OF NAUSAE OR CONSTIPATION. PT USING URINAL IN BRP. PT REPORTING ABD PAIN/ MEDICATED PER ORDERS. BED LOWEST POSITION, CALL LIGHT IN REACH, AWAITING TO GIVE REPORT TO ONCOMING RN.
--- NOTE | 2025-02-08 07:25 | NUR ---
ASSUMPITION NOTE: THIS RN TO ASSUME CARE OF PATIENT. PATIENT SITTING UP IN CHAIR AWAITNG BREAKFAST. DENIED ANY CURRENT PAIN. VITAL SIGNS STABLE. HAS CALL LIGHT WITHIN REACH & STATING NOTHING ELSE IS NEEDED AT THIS TIME. HAS HEPARIN RUNNING AT 32KG/UNIT.
[2025-02-08 07:29] VITALS: BP 106/51
--- NOTE | 2025-02-08 09:59 | NUR ---
ROUNDED: MD WAN CHATTED WITH PATIENT. MD TO LOOK AT CHART POSSIBLY CHANGING ROUTE OF HEPARIN PT IS IN THERAPUTIC RANGE CURRENTLY. WILL LOOK AT CHANGING IV ANTIBIOTICS HIS WHITE BLOOD CELL COUNT HAS BUMPED BACK UP. MD TO ADD CHEST X-RAY TODAY POSSIBLY.
[2025-02-08 11:06] VITALS: BP 111/59
[2025-02-08 15:29] VITALS: BP 115/68
--- NOTE | 2025-02-08 17:05 | NUR ---
SHIFT SUMMARY: PATIENT IS ALERT AND ORIENTED X4 & COOPERATIVE WITH HER CARE,IS ABLE TO MAKE NEEDS KNOWN & USES CALL LIGHT APPROPRIATELY. ON TELE SHOWING SINUS WITH RATE IN 80'S. SATTING >92% ON ROOM AIR. IV ANTIBIOTICS WERE CHANGED TODAY DUE TO WHITE BLOOD CELL COUNTING INCREASING. HEPARIN DRIP CONTINUES TO RUN,WAS INCREASED AND A BOLUS WAS GIVEN. PT GOT A REPEAT CHEST X-RAY DONE,SEE CHART FOR MORE INFORMATION. PATIENT SHOWERED TODAY, WAS ABLE TO GET SOME REST THROUGHOUT THE SHIFT. PT CURRENTLY IN BED,HAS CALL LIGHT WITHIN REACH, BED IN LOWEST POSITION & STATING NOTHING ELSE IS NEEDED AT THIS TIME.
[2025-02-08 19:37] VITALS: BP 122/68
[2025-02-08 22:58] VITALS: BP 136/69
[2025-02-09 03:08] VITALS: BP 103/57
[2025-02-09 03:29] LABS: BASOPHILS ABSOLUTE AUTO 0.10 K/mm3 (0.00-0.23); BASOPHILS PERCENT AUTO 0 % (0-2); EOSINOPHILS ABSOLUTE AUTO 0.11 K/mm3 (0.00-0.68); EOSINOPHILS PERCENT AUTO 1 % (0-6); Hematocrit 28.5 % (37.0-53.0); Hemoglobin 9.6 g/dL (13.5-17.5); IMMATURE GRAN ABSOLUTE AUTO 0.22 K/mm3 (0.00-0.10); IMMATURE GRAN PERCENT AUTO 1 % (0-1); LYMPHOCYTES ABSOLUTE AUTO 1.70 K/mm3 (0.84-5.20); LYMPHOCYTES PERCENT AUTO 7 % (21-46); MONOCYTES ABSOLUTE AUTO 2.61 K/mm3 (0.16-1.47); MONOCYTES PERCENT AUTO 11 % (4-13); Mean Corpuscular HGB Conc 33.7 g/dL (31.5-36.5); Mean Corpuscular Volume 97 fL (80-100); NEUTROPHILS ABSOLUTE AUTO 19.44 K/mm3 (1.96-9.15); NEUTROPHILS PERCENT AUTO 80 % (41-73); NRBC ABSOLUTE 0.00 K/mm3 (0.00-0.02); NRBC Auto 0.0 /100 WBC (0.0-0.2); Platelet Count 410 K/mm3 (150-400); RDW Coefficient Variation 13.7 % (11.7-14.2); RDW Standard Deviation 48.8 fL (35.1-46.3)
[2025-02-09 03:47] LABS: Alanine Aminotransfer (ALT/SGP 21.0 U/L (12-78); Albumin, Blood 1.4 g/dL (3.4-5.0); Albumin/Globulin Ratio 0.4 (0.8-1.8); Anion Gap 8.0 mmol/L (3-11); Aspartate Aminotrans (AST/SGOT 35.0 U/L (12-37); Bilirubin, Total 0.5 mg/dL (0.1-1.0); Blood Urea Nitrogen 21.0 mg/dL (8-24); CO2, Blood 26.0 mmol/L (21-32); Calcium, Blood 7.9 mg/dL (8.5-10.1); Chloride, Blood 103.0 mmol/L (98-108); Creatinine, Blood 0.97 mg/dL (0.60-1.20); Globulin, Blood 3.6 g/dL (2.2-4.0); Glucose, Blood 107.0 mg/dL (70-99); Potassium, Blood 4.0 mmol/L (3.5-5.5); Sodium, Blood 133.0 mmol/L (136-145); Total Protein, Blood 5.0 g/dL (6.4-8.2)
[2025-02-09] MEDS ORDERED: Clarify Drug Order XX ONE (03:55)
--- NOTE | 2025-02-09 06:02 | NUR ---
SHIFT SUMMARY PT IS A&O X4, ABLE TO MAKE NEEDS KNOWN, MOVING EXTREMITIES WITH PURPOSE, REPOSITIONING SELF IN BED, ABLE TO AMBULATED TO [facility] SBA FOR CORD MANAGEMENT, OBEYS COMMANDS. CONTINUOUS SPO2 GREATER THAN 90% RA, LUNGS SOUND CLEAR UPPERS WITH DIMINISHED BASES, NO SIGNS OF RESPIRATORY DISTRESS NOTED, PT REPORTING INTERMITTENT HICUPS THAT MAKE HIM SHORT OF BREATH/ SPO2 MAINTAINED GREATER THAN 90%. CONTINUOUS TELE MONITORING, SINUS 80 S, PT DENIES CHEST P/P T/O THIS SHIFT, BP STABLE WITH MAP GREATER THAN 65, PULSES PRESENT T/O. BOWEL TONES PRESENT IN ALL 4Q, PT REPORTED NAUSEA EARLIER IN THE SHIFT/ MEDICATED PER ORDERS, PT HAS DENIED NAUSEA SINCE MEDICATING. PT USING URINAL IND, URINE YELLOW IN COLOR. PT REPORTING ABD PAIN/ MEDICATED PER ORDERS. BED LOWEST POSITION, CALL LIGHT IN REACH, AWAITING TO GIVE REPORT TO ONCOMING RN.
--- NOTE | 2025-02-09 07:33 | NUR ---
ASSUMPTION NOTE: THIS RN TO ASSUME CARE OF PT. PATIENT IS SLEEPING,EASILY AROUSABLE TO SOUNDS. PATIENT VITAL SIGNS STABLE & DENIED ANY CHEST PAIN/PRESSURE. PATIENT DECLINED FEELNG SHORT OF BREATH. IS GETTING READY FOR BREAKFAST TO GET INTO CHAIR. HAS CALL LIGHT WITHIN REACH AND STATING NOTHING ELSE IS NEEDED AT THIS TIME.
[2025-02-09 07:38] VITALS: BP 122/68
--- NOTE | 2025-02-09 09:45 | NUR ---
MD ROUNDED: MD ROUNDED AND PATIENT WAS ABLE TO ASK SOME QUESTIONS HE HAD. FLUIDS WERE DISCTONUED AND PATIENT TO GO HOME WIHTHIN A FEW DAYS. PATIENT AWARE WE WILL CONTINUE ANTIBIOTICS AND NOTIFIED HE GOT A BED PLACEMENT. PATIENT ENCOURAGED TO HAVE MORE ORAL INTAKE, WILLING TO DRINK AN ENSURE.
--- NOTE | 2025-02-09 10:37 | NUR ---
TRANSFER NOTE: THIS RN CALLED REPORT TO RECEIVING RN. PATIENT IS ALERT AND ORIENTED X4 & COOPERATIVE WITH HIS CARE. ON TELE SHOWING SINUS RYTHM WITH RATE IN 80'S. SATTING >92% ON ROOM AIR. PATIENT CONTINUES TO BE ON HEAPRIN RUNNING AT 34UNITS/KG. PATIENT TOOK ALL PERSONAL BELONGING WITH HIM.
--- NOTE | 2025-02-09 10:40 | NUR ---
PATIENT ARRIVED TO THE UNIT VIA WHEELCHAIR WAS ABLE TO SELF TRANSFER WITH MINIMAL ASSISTANCE TO THE BED. PATIENT SETTLED IN ROOM, IV'S AND SKIN ASSESSED, TELE AND ZIO PATCH IN PLACE. HEPARIN RUNNING AT 34/U/KG/HR OR RATE OF 54.4. NO SIGNS OR SYMPTOMS OF DISTRESS WITH PATIENT. CALL LIGHT WITHIN REACH, BED IN LOWEST POSITION, PLAN OF CARE ONGOING.
[2025-02-09] MEDS ORDERED: NS 250 ML IV PRN (16:10)
[2025-02-09 16:21] VITALS: BP 152/77
--- NOTE | 2025-02-09 16:26 | NUR ---
SHIFT SUMMARY: NO EVENTS OR CHANGES WITH THE PATIENT SINCE HE HAS COME ONTO THE UNIT. PATIENT A&OX4/SBA, PLEASANT AND COOPERATIVE WITH CARE, BEEN RESTING MOST OF THE SHIFT. HEPARIN AND ANTIBIOTICS INFUSING. RESPIRATIONS EVEN AND UNLABORED, CALL LIGHT WITHIN REACH, BED IN LOWEST POSITION, PLAN OF CARE ONGOING.
[2025-02-09 19:33] VITALS: BP 145/74
[2025-02-10 00:32] VITALS: BP 158/78
[2025-02-10 04:54] VITALS: BP 132/64
[2025-02-10 05:12] LABS: BASOPHILS ABSOLUTE AUTO 0.09 K/mm3 (0.00-0.23); BASOPHILS PERCENT AUTO 1 % (0-2); EOSINOPHILS ABSOLUTE AUTO 0.14 K/mm3 (0.00-0.68); EOSINOPHILS PERCENT AUTO 1 % (0-6); Hematocrit 30.6 % (37.0-53.0); Hemoglobin 10.9 g/dL (13.5-17.5); IMMATURE GRAN ABSOLUTE AUTO 0.41 K/mm3 (0.00-0.10); IMMATURE GRAN PERCENT AUTO 2 % (0-1); LYMPHOCYTES ABSOLUTE AUTO 1.63 K/mm3 (0.84-5.20); LYMPHOCYTES PERCENT AUTO 8 % (21-46); MONOCYTES ABSOLUTE AUTO 2.64 K/mm3 (0.16-1.47); MONOCYTES PERCENT AUTO 14 % (4-13); Mean Corpuscular HGB Conc 35.6 g/dL (31.5-36.5); NEUTROPHILS ABSOLUTE AUTO 14.48 K/mm3 (1.96-9.15); NEUTROPHILS PERCENT AUTO 75 % (41-73); NRBC ABSOLUTE 0.00 K/mm3 (0.00-0.02); NRBC Auto 0.0 /100 WBC (0.0-0.2); RDW Coefficient Variation 13.6 % (11.7-14.2); RDW Standard Deviation 45.9 fL (35.1-46.3)
[2025-02-10 05:17] LABS: Mean Corpuscular Volume 92 fL (80-100); Platelet Count 279 K/mm3 (150-400)
[2025-02-10] MEDS ORDERED: Dose Adjust by Pharmacy XX STA (05:30)
--- NOTE | 2025-02-10 06:04 | NUR ---
SHIFT SUMMARY;PATIENT ABLE TO SLEEP IN LONG INTERVALS, DENIED NEED FOR PAIN UNTIL AROUND 0500 THEN HAD PAIN AND NAUSEA MEDS. TELE SR 70. HEPARIN INFUSING AT 34 U/MIN OR 54.4 ML/HR. PHARMACY CALLED AROUND 0530 TO TELL ME TO LEAVE THE RATE THE SAME FOR NOW.
[2025-02-10 07:28] LABS: Alanine Aminotransfer (ALT/SGP 20.0 U/L (12-78); Albumin, Blood 1.4 g/dL (3.4-5.0); Albumin/Globulin Ratio 0.4 (0.8-1.8); Anion Gap 7.0 mmol/L (3-11); Aspartate Aminotrans (AST/SGOT 20.0 U/L (12-37); Bilirubin, Total 0.4 mg/dL (0.1-1.0); Blood Urea Nitrogen 19.0 mg/dL (8-24); CO2, Blood 27.0 mmol/L (21-32); Calcium, Blood 7.5 mg/dL (8.5-10.1); Chloride, Blood 104.0 mmol/L (98-108); Creatinine, Blood 0.88 mg/dL (0.60-1.20); Globulin, Blood 3.4 g/dL (2.2-4.0); Glucose, Blood 112.0 mg/dL (70-99); Potassium, Blood 3.3 mmol/L (3.5-5.5); Sodium, Blood 135.0 mmol/L (136-145); Total Protein, Blood 4.8 g/dL (6.4-8.2)
[2025-02-10 07:43] VITALS: BP 146/76
[2025-02-10] MEDS ORDERED: PANT40 PO (12:13)
[2025-02-10] MEDS ORDERED: ELIQUIS5 M2 PO (12:16)
[2025-02-10] MEDS ORDERED: OXYC5 PO (12:20)
[2025-02-10] MEDS ORDERED: VISBIOME 112.51 EACH PO (12:22)
[2025-02-10] MEDS ORDERED: AMOCLA875 PO (12:23)
[2025-02-10] MEDS ORDERED: OXAYDO5 M1 PO (12:28)
--- NOTE | 2025-02-10 14:15 | NUR ---
DISCHARGE NOTE: IVs AND TELEMETRY REMOVED UPON DISCHARGE. VSS. PT INDEPENDENTLY PREPARED BELONGINGS AND DRESSED SELF. DISCHARGE INFORMATION AND EDUCATION EXPLAINED TO PT. PT GAVE VERBAL ACKNOWLEDGEMENT OF INFORMATION. TREASURY AGENT ESCORED PT OUT TO VEHICLE VIA WHEELCHAIR TO PTs RIDE. MEDICATIONS FAXED TO PHARMACY.
== END 2025-02-10 14:12 | disposition home or self-care (01) | DRG 871 ==
LOC: ER 17:21 → PCU 19:58 → MEDS 02-09 10:30 → ENPENDDIS 02-10 11:50 → MEDS 02-10 14:12
PROVIDERS: Family Medicine; Student in an Organized Health Care Education/Training Program; ADMIT Internal Medicine
DX: A41.9 Sepsis, unspecified organism (principal); I81 Portal vein thrombosis; J18.9 Pneumonia, unspecified organism; K85.90 Acute pancreatitis without necrosis or infection, unspecified; J69.0 Pneumonitis due to inhalation of food and vomit; N17.9 Acute kidney failure, unspecified; J98.11 Atelectasis; E87.1 Hypo-osmolality and hyponatremia; K86.3 Pseudocyst of pancreas; E87.20 Acidosis, unspecified; Y95 Nosocomial condition; R12 Heartburn; R65.20 Severe sepsis without septic shock; E86.0 Dehydration; R09.02 Hypoxemia; E86.1 Hypovolemia; I10 Essential (primary) hypertension; I44.1 Atrioventricular block, second degree; Z60.2 Problems related to living alone; Z90.49 Acquired absence of other specified parts of digestive tract; Z79.82 Long term (current) use of aspirin
CPT/HCPCS: 0202U; 36415; 36416; 71046; 74177; 80053; 80069; 82803; 82947; 83605; 83615; 83690; 83721; 83735; 84145; 85014; 85018; 85025; 85520; 85610; 85730; 87040; 92610; 93005; 93010; 94664; 94760; 94762; 96374-59; 96375; 99285-25; A9270; J0456; J0692; J0780; J1171; J1644; J2185; J2270; J2405; J2470; J3373; J7040; J7050; J7120; Q9967

== ENCOUNTER 2025-02-16 13:03 | Emergency (ER) | payer OTHER ==
[~2025-02-16] VITALS: Ht 177.8 cm; Wt 79.8 kg
[~2025-02-16 13:03] MED LIST changes: +AMOCLA875 PO; +ELIQUIS5 M2 PO; +OXAYDO5 M1 PO; +OXYC5 PO; +PANT40 PO; +VISBIOME 112.51 EACH PO
[2025-02-16 14:56] LABS: Hematocrit 38.2 % (37.0-53.0); Hemoglobin 12.8 g/dL (13.5-17.5); Mean Corpuscular HGB Conc 33.5 g/dL (31.5-36.5); Mean Corpuscular Volume 97 fL (80-100); NRBC ABSOLUTE 0.00 K/mm3 (0.00-0.02); NRBC Auto 0.0 /100 WBC (0.0-0.2); Platelet Count 482 K/mm3 (150-400); RDW Coefficient Variation 13.8 % (11.7-14.2); RDW Standard Deviation 49.4 fL (35.1-46.3)
[2025-02-16 15:09] LABS: Alanine Aminotransfer (ALT/SGP 35.0 U/L (12-78); Albumin, Blood 1.9 g/dL (3.4-5.0); Albumin/Globulin Ratio 0.4 (0.8-1.8); Anion Gap 4.0 mmol/L (3-11); Aspartate Aminotrans (AST/SGOT 42.0 U/L (12-37); Bilirubin, Total 0.6 mg/dL (0.1-1.0); Blood Urea Nitrogen 13.0 mg/dL (8-24); CO2, Blood 31.0 mmol/L (21-32); Calcium, Blood 8.4 mg/dL (8.5-10.1); Chloride, Blood 104.0 mmol/L (98-108); Creatinine, Blood 0.82 mg/dL (0.60-1.20); Globulin, Blood 4.7 g/dL (2.2-4.0); Glucose, Blood 119.0 mg/dL (70-99); Potassium, Blood 3.9 mmol/L (3.5-5.5); Sodium, Blood 135.0 mmol/L (136-145); Total Protein, Blood 6.6 g/dL (6.4-8.2)
[2025-02-16 15:46] LABS: BAND PERCENT MAN 1 % (0-8); BASOPHILS ABSOLUTE MAN 0.00 K/mm3 (0.00-0.23); BASOPHILS PERCENT MAN 0 % (0-2); EOSINOPHILS ABSOLUTE MAN 0.00 K/mm3 (0.00-0.68); EOSINOPHILS PERCENT MAN 0 % (0-6); LYMPHOCYTES ABSOLUTE MAN 1.38 K/mm3 (0.84-5.20); LYMPHOCYTES PERCENT MAN 7 % (21-46); MONOCYTES ABSOLUTE MAN 0.39 K/mm3 (0.16-1.47); MONOCYTES PERCENT MAN 2 % (4-13); NEUTROPHILS ABSOLUTE MAN 17.97 K/mm3 (1.96-9.15); SEG NEUTROPHILS PERCENT MAN 90 % (41-73)
[2025-02-16] MEDS ORDERED: LEVOFLOXACIN250 M9 PO (19:05)
[2025-02-16] MEDS ORDERED: FURO20 PO (19:05)
[2025-02-16 19:22] VITALS: BP 150/78
== END 2025-02-16 19:35 | disposition home or self-care (01) ==
LOC: ER 13:03
PROVIDERS: Physician Assistant
DX: J90 Pleural effusion, not elsewhere classified (principal); D72.829 Elevated white blood cell count, unspecified; R53.1 Weakness; I10 Essential (primary) hypertension; Z79.899 Other long term (current) drug therapy; Z91.030 Bee allergy status
CPT/HCPCS: 71046; 80053; 83690; 85025; 93005; 93010; 96374; 99284-25; A9270; J1938

== ENCOUNTER 2025-03-20 11:46 | Observation (INO) | payer OTHER ==
[~2025-03-20] VITALS: Ht 177.8 cm; Wt 66.3 kg
[~2025-03-20 11:46] MED LIST changes: +FURO20 PO; +LEVOFLOXACIN250 M9 PO
[2025-03-20 12:33] LABS: BASOPHILS ABSOLUTE AUTO 0.07 K/mm3 (0.00-0.23); BASOPHILS PERCENT AUTO 0 % (0-2); EOSINOPHILS ABSOLUTE AUTO 0.02 K/mm3 (0.00-0.68); EOSINOPHILS PERCENT AUTO 0 % (0-6); Hematocrit 33.0 % (37.0-53.0); Hemoglobin 10.8 g/dL (13.5-17.5); IMMATURE GRAN ABSOLUTE AUTO 0.16 K/mm3 (0.00-0.10); IMMATURE GRAN PERCENT AUTO 1 % (0-1); LYMPHOCYTES ABSOLUTE AUTO 2.24 K/mm3 (0.84-5.20); LYMPHOCYTES PERCENT AUTO 10 % (21-46); MONOCYTES ABSOLUTE AUTO 2.13 K/mm3 (0.16-1.47); MONOCYTES PERCENT AUTO 9 % (4-13); Mean Corpuscular HGB Conc 32.7 g/dL (31.5-36.5); Mean Corpuscular Volume 97 fL (80-100); NEUTROPHILS ABSOLUTE AUTO 18.16 K/mm3 (1.96-9.15); NEUTROPHILS PERCENT AUTO 80 % (41-73); NRBC ABSOLUTE 0.00 K/mm3 (0.00-0.02); NRBC Auto 0.0 /100 WBC (0.0-0.2); Platelet Count 361 K/mm3 (150-400); RDW Coefficient Variation 15.0 % (11.7-14.2); RDW Standard Deviation 53.6 fL (35.1-46.3)
[2025-03-20 12:57] LABS: Alanine Aminotransfer (ALT/SGP 26.0 U/L (12-78); Albumin, Blood 1.6 g/dL (3.4-5.0); Albumin/Globulin Ratio 0.3 (0.8-1.8); Anion Gap 10.0 mmol/L (3-11); Aspartate Aminotrans (AST/SGOT 35.0 U/L (12-37); Bilirubin, Direct 0.1 mg/dL (0.0-0.3); Bilirubin, Total 0.5 mg/dL (0.1-1.0); Blood Urea Nitrogen 23.0 mg/dL (8-24); CO2, Blood 25.0 mmol/L (21-32); Calcium, Blood 8.3 mg/dL (8.5-10.1); Chloride, Blood 103.0 mmol/L (98-108); Creatinine, Blood 0.98 mg/dL (0.60-1.20); Globulin, Blood 4.9 g/dL (2.2-4.0); Glucose, Blood 146.0 mg/dL (70-99); Magnesium, Blood 2.1 mg/dL (1.6-2.4); Potassium, Blood 4.7 mmol/L (3.5-5.5); Sodium, Blood 133.0 mmol/L (136-145); Total Protein, Blood 6.5 g/dL (6.4-8.2)
[2025-03-20 17:30] LABS: Prothrombin Time Results 13.5 Sec (9.7-11.5)
[2025-03-20 17:35] LABS: Anti-Xa UFH, PHA Monitoring 1.1 IU/mL
[2025-03-20] MEDS ORDERED: Ondansetron 4 MG SoluTab MM PRN (18:35)
[2025-03-20] MEDS ORDERED: Morphine Sulfate 4 MG/1 ML Injection IV PRN (18:35)
[2025-03-20 19:50] VITALS: BP 116/72
[2025-03-20 20:09] LABS: Hematocrit 30.4 % (37.0-53.0); Hemoglobin 10.2 g/dL (13.5-17.5); Mean Corpuscular HGB Conc 33.6 g/dL (31.5-36.5); Mean Corpuscular Volume 96 fL (80-100); NRBC ABSOLUTE 0.00 K/mm3 (0.00-0.02); NRBC Auto 0.0 /100 WBC (0.0-0.2); Platelet Count 315 K/mm3 (150-400); RDW Coefficient Variation 14.7 % (11.7-14.2); RDW Standard Deviation 51.6 fL (35.1-46.3)
[2025-03-20 20:27] LABS: Anion Gap 8.0 mmol/L (3-11); Blood Urea Nitrogen 22.0 mg/dL (8-24); CO2, Blood 28.0 mmol/L (21-32); Calcium, Blood 8.4 mg/dL (8.5-10.1); Chloride, Blood 103.0 mmol/L (98-108); Creatinine, Blood 0.79 mg/dL (0.60-1.20); Glucose, Blood 94.0 mg/dL (70-99); Lactate Dehydrogenase (Ld),Bld 107.0 U/L (100-240); Potassium, Blood 4.1 mmol/L (3.5-5.5); Sodium, Blood 135.0 mmol/L (136-145)
[2025-03-20] MEDS ORDERED: Dose Adjust by Pharmacy XX STA (20:40)
[2025-03-20] MEDS ORDERED: DICLOFENAC SOD100 GM TOP (21:00)
[2025-03-20] MEDS ORDERED: Heparin Sodium,Porcine/0.5 NS 500 ML IV SCH (21:00)
[2025-03-20 21:39] LABS: Source, Urine Clean Catch
[2025-03-20 21:42] LABS: Bilirubin, Urine Neg (Neg); Glucose Qualitative, Urine Neg (Neg); Ketones, Urine Neg (Neg); Leukocyte Esterase, Urine Neg (Neg); Protein, Urine 2+ (Neg); Specific Gravity, Urine 1.015 (1.003-1.022); Urobilinogen, Urine NORM (Normal)
[2025-03-20 21:46] LABS: Color, Urine Yellow (P-Yellow)
[2025-03-20 21:48] LABS: Red Blood Cells, Urine Not Seen /hpf (0-2); White Blood Cells, Urine Not Seen /hpf (0-5)
[2025-03-20 23:21] VITALS: BP 122/75
[2025-03-21 03:14] VITALS: BP 112/61
[2025-03-21 03:36] LABS: Hematocrit 32.2 % (37.0-53.0); Hemoglobin 10.6 g/dL (13.5-17.5); Mean Corpuscular HGB Conc 32.9 g/dL (31.5-36.5); Mean Corpuscular Volume 94 fL (80-100); NRBC ABSOLUTE 0.00 K/mm3 (0.00-0.02); NRBC Auto 0.0 /100 WBC (0.0-0.2); Platelet Count 370 K/mm3 (150-400); RDW Coefficient Variation 14.8 % (11.7-14.2); RDW Standard Deviation 51.8 fL (35.1-46.3)
[2025-03-21 03:58] LABS: Alanine Aminotransfer (ALT/SGP 25.0 U/L (12-78); Albumin, Blood 1.7 g/dL (3.4-5.0); Albumin/Globulin Ratio 0.4 (0.8-1.8); Anion Gap 8.0 mmol/L (3-11); Aspartate Aminotrans (AST/SGOT 27.0 U/L (12-37); Bilirubin, Total 0.5 mg/dL (0.1-1.0); Blood Urea Nitrogen 18.0 mg/dL (8-24); CO2, Blood 27.0 mmol/L (21-32); Calcium, Blood 8.2 mg/dL (8.5-10.1); Chloride, Blood 106.0 mmol/L (98-108); Creatinine, Blood 0.77 mg/dL (0.60-1.20); Globulin, Blood 4.6 g/dL (2.2-4.0); Glucose, Blood 93.0 mg/dL (70-99); Potassium, Blood 4.5 mmol/L (3.5-5.5); Sodium, Blood 136.0 mmol/L (136-145); Total Protein, Blood 6.3 g/dL (6.4-8.2)
[2025-03-21 04:25] LABS: BASOPHILS ABSOLUTE MAN 0.00 K/mm3 (0.00-0.23); BASOPHILS PERCENT MAN 0 % (0-2); EOSINOPHILS ABSOLUTE MAN 0.19 K/mm3 (0.00-0.68); EOSINOPHILS PERCENT MAN 1 % (0-6); LYMPHOCYTES ABSOLUTE MAN 2.10 K/mm3 (0.84-5.20); LYMPHOCYTES PERCENT MAN 11 % (21-46); MONOCYTES ABSOLUTE MAN 1.14 K/mm3 (0.16-1.47); MONOCYTES PERCENT MAN 6 % (4-13); NEUTROPHILS ABSOLUTE MAN 15.69 K/mm3 (1.96-9.15); SEG NEUTROPHILS PERCENT MAN 82 % (41-73)
[2025-03-21] MEDS ORDERED: Dose Adjust by Pharmacy XX STA (04:47)
[2025-03-21] MEDS ORDERED: Heparin Sodium 5000 Units/ML 1ML MDV IV ONE (04:50)
--- NOTE | 2025-03-21 06:22 | NUR ---
SHIFT SUMMARY PT IS A&O X 4, ABLE TO MAKE NEEDS KNOWN, MOVING ALL EXTREMITIES WITH PURPOSE, OBEYS COMMANDS, REPOSITIONING SELF IN BED, SBA TO BATHROOM, BED ALARM ACTIVE. SPO2 GREATER THAN 92% ON RA, LUNGS SOUND CLEAR T/O, PT DENIES SOB T/O THIS SHIFT. CONTINUOUS TELE MONITORING, SINUS 60-70 S, BP STABLE WITH MAP GREATER THAN 65, CAP REFILL WNL, PULSES PRESENT T/O, DENIES CHEST P/P T/O THIS SHIFT. BOWEL TONES PRESENT IN ALL 4Q, PT DENIES FEELINGS OF NAUSEA OR CONSTIPATION OR PAIN. PT CONTINENT OF URINE BED LOWEST POSITION, CALL LIGHT IN REACH, AWAITING TO GIVE REPORT TO ONCOMING RN.
[2025-03-21 08:11] VITALS: BP 125/99
[2025-03-21 12:36] VITALS: BP 117/81
[2025-03-21 16:09] VITALS: BP 123/83
--- NOTE | 2025-03-21 16:56 | NUR ---
SHIFT SUMMARY/DISCHARGE PATIENT AOX4 ABLE TO MAKE NEEDS KNOWN DENIES CP OR SOB. TOLERATING FULL LIQUID MEALS DUE TO NOT HAVING DENTURES. INDEPENDENT TO THE RESTROOM. VITALS ARE STABLE. DISCHARGE INSTRUCTIONS EXPLAINED AND SPOKE WITH HOSPITALIST ABOUT PARAMETERS FOR LISINOPRIL PATIENT UNDERSTAND NOT TO TAKE IF SBP IS LESS THAN 100.
== END 2025-03-21 16:30 | disposition home or self-care (01) ==
LOC: ER 11:46 → ERHOLD 11:47 → PCU 15:59
PROVIDERS: Student in an Organized Health Care Education/Training Program; ADMIT Family Medicine
DX: I21.4 Non-ST elevation (NSTEMI) myocardial infarction (principal); K86.1 Other chronic pancreatitis; I95.9 Hypotension, unspecified; E86.1 Hypovolemia; K57.30 Diverticulosis of large intestine without perforation or abscess without bleeding; E87.1 Hypo-osmolality and hyponatremia; R65.10 Systemic inflammatory response syndrome (SIRS) of non-infectious origin without acute organ dysfunction; I81 Portal vein thrombosis; D72.829 Elevated white blood cell count, unspecified; I10 Essential (primary) hypertension; Z79.01 Long term (current) use of anticoagulants; Z79.899 Other long term (current) drug therapy; Z91.030 Bee allergy status
CPT/HCPCS: 36415; 71275; 74177; 80048; 80053; 81001; 82248; 83605; 83615; 83690; 83735; 83880; 84484; 85007; 85025; 85027; 85520; 85610; 85730; 87040; 93005; 93010; 96374; 96376; 99285-25; A9270; G0378; J1644; J7120; Q9967

== ENCOUNTER 2025-03-29 09:21 | Emergency (ER) | payer OTHER ==
[~2025-03-29] VITALS: Ht 170.2 cm; Wt 63.5 kg
[~2025-03-29 09:21] MED LIST changes: +DICLOFENAC SOD100 GM TOP
[2025-03-29 10:01] LABS: BASOPHILS ABSOLUTE AUTO 0.10 K/mm3 (0.00-0.23); BASOPHILS PERCENT AUTO 1 % (0-2); EOSINOPHILS ABSOLUTE AUTO 0.27 K/mm3 (0.00-0.68); EOSINOPHILS PERCENT AUTO 1 % (0-6); Hematocrit 34.9 % (37.0-53.0); Hemoglobin 11.6 g/dL (13.5-17.5); IMMATURE GRAN ABSOLUTE AUTO 0.18 K/mm3 (0.00-0.10); IMMATURE GRAN PERCENT AUTO 1 % (0-1); LYMPHOCYTES ABSOLUTE AUTO 3.33 K/mm3 (0.84-5.20); LYMPHOCYTES PERCENT AUTO 15 % (21-46); MONOCYTES ABSOLUTE AUTO 2.02 K/mm3 (0.16-1.47); MONOCYTES PERCENT AUTO 9 % (4-13); Mean Corpuscular HGB Conc 33.2 g/dL (31.5-36.5); Mean Corpuscular Volume 97 fL (80-100); NEUTROPHILS ABSOLUTE AUTO 16.15 K/mm3 (1.96-9.15); NEUTROPHILS PERCENT AUTO 73 % (41-73); NRBC ABSOLUTE 0.00 K/mm3 (0.00-0.02); NRBC Auto 0.0 /100 WBC (0.0-0.2); Platelet Count 479 K/mm3 (150-400); RDW Coefficient Variation 16.1 % (11.7-14.2); RDW Standard Deviation 56.1 fL (35.1-46.3)
[2025-03-29 10:19] LABS: Alanine Aminotransfer (ALT/SGP 53.0 U/L (12-78); Albumin, Blood 2.0 g/dL (3.4-5.0); Albumin/Globulin Ratio 0.4 (0.8-1.8); Anion Gap 9.0 mmol/L (3-11); Aspartate Aminotrans (AST/SGOT 66.0 U/L (12-37); Bilirubin, Total 0.5 mg/dL (0.1-1.0); Blood Urea Nitrogen 17.0 mg/dL (8-24); CO2, Blood 27.0 mmol/L (21-32); Calcium, Blood 8.2 mg/dL (8.5-10.1); Chloride, Blood 108.0 mmol/L (98-108); Creatinine, Blood 0.79 mg/dL (0.60-1.20); Globulin, Blood 5.0 g/dL (2.2-4.0); Glucose, Blood 105.0 mg/dL (70-99); Magnesium, Blood 2.0 mg/dL (1.6-2.4); Potassium, Blood 5.0 mmol/L (3.5-5.5); Sodium, Blood 139.0 mmol/L (136-145); Total Protein, Blood 7.0 g/dL (6.4-8.2)
[2025-03-29 10:45] VITALS: BP 101/72
== END 2025-03-29 10:54 | disposition home or self-care (01) ==
LOC: ER 09:21
PROVIDERS: Emergency Medicine
DX: I47.10 Supraventricular tachycardia, unspecified (principal); I10 Essential (primary) hypertension; Z91.030 Bee allergy status; Z79.01 Long term (current) use of anticoagulants; Z79.899 Other long term (current) drug therapy
CPT/HCPCS: 80053; 83735; 85025; 93005; 93010; 99285-25